=== PATIENT | female | born 1960 | race Caucasian/White ===

== ENCOUNTER 2021-02-28 07:48 | Day surgery (SDC) | payer BC ==
[~2021-02-28] VITALS: Ht 149.9 cm; Wt 82.5 kg
[2021-02-28] MEDS ORDERED: DESYREL 50MG50 MG PO (08:08)
[2021-02-28] MEDS ORDERED: KLONOPIN 0.5MG0.5 MG PO (08:08)
[2021-02-28] MEDS ORDERED: LEVOXYL0.125 MG PO (08:09)
[2021-02-28] MEDS ORDERED: PRILOTC PO (08:09)
[2021-02-28] MEDS ORDERED: VOLTAREN 75 DR75 MG PO (08:09)
[2021-02-28] MEDS ORDERED: ZOVIRAX400 MG PO (08:10)
[2021-02-28] MEDS ORDERED: PRISTIQ100 MG PO (08:10)
[2021-02-28] MEDS ORDERED: NEURONTIN100 MG/CAP PO (08:11)
[2021-02-28] MEDS ORDERED: NEURONTIN600 MG/TAB PO (08:11)
[2021-02-28] MEDS ORDERED: FOSAMAX 70MG TA70 MG PO (08:12)
[2021-02-28] MEDS ORDERED: LINZESS145CAP PO (08:12)
[2021-02-28] MEDS ORDERED: CALCIUM 600MG+D1 TAB PO (08:12)
[2021-02-28 08:19] VITALS: BP 108/73; PULSE 91; TEMP 98.2
[2021-02-28 09:50] VITALS: BP 104/56; PULSE 71; TEMP 97.6
[2021-02-28 10:00] VITALS: BP 110/69; PULSE 87
[2021-02-28 10:15] VITALS: BP 115/63; PULSE 79
[2021-02-28 10:30] VITALS: BP 100/63; PULSE 89
--- NOTE | 2021-02-28 14:00 | NUR ---
PT RETURNED FROM ENDO PROCEDURE ROOM PER CART INTO BAY#2. PT ALERT AND SLEEPY. DENIES PAIN, NAUSEA AND VOMITING AT THIS TIME. LUNGS CLEAR, HRR, BOWEL SOUNDS PRESENT. REQUESTS BLUEBERRY MUFFIN AND DIET PEPSI. FRIEND, KARLENE IS PRESENT IN ROOM WITH HER, THEY ARE TALKING. CALL LIGHT IN REACH. WILL CONT TO MONITOR.
--- NOTE | 2021-02-28 14:05 | NUR ---
PT TOLERATING FOOD AND FLUIDS WITHOUT DIFFICUTLY. DENIES PAIN. FRIEND, KARLENE IS AT HER SIDE.
--- NOTE | 2021-02-28 14:12 | NUR ---
PT TOLERATING FOOD AND FLUIDS WITHOUT DIFFICULTY. IV DC'D, PT TOLERATED WELL. DISMISSAL INSTRUCTIONS GIVEN, PT DENIES QUESTIONS. PT WAS TAKEN TO FRIEND'S CAR PER FOR DISCHARGE. FRIEND, KARLENE WAS DRIVING.
== END 2021-02-28 10:45 | disposition home or self-care (01) ==
LOC: SDCO 07:48
DX: Z12.11 Encounter for screening for malignant neoplasm of colon (principal); K62.89 Other specified diseases of anus and rectum; K57.30 Diverticulosis of large intestine without perforation or abscess without bleeding; E03.9 Hypothyroidism, unspecified; M19.90 Unspecified osteoarthritis, unspecified site; K21.9 Gastro-esophageal reflux disease without esophagitis; G47.33 Obstructive sleep apnea (adult) (pediatric); F41.9 Anxiety disorder, unspecified; Z99.89 Dependence on other enabling machines and devices; Z90.710 Acquired absence of both cervix and uterus; Z90.89 Acquired absence of other organs; Z79.890 Hormone replacement therapy; Z79.899 Other long term (current) drug therapy; Z98.0 Intestinal bypass and anastomosis status
CPT/HCPCS: J7120

== ENCOUNTER 2024-01-16 09:51 | Inpatient (IN) | payer BC ==
[2024-01-16] VITALS (7 sets, daily range): BP systolic 96–128; BP diastolic 60–80; PULSE 56–74; TEMP 97.9–99.5
[~2024-01-16] VITALS: Ht 147.3 cm; Wt 78.2 kg
[~2024-01-16 09:51] MED LIST: ASPIRIN 81M81 MG/TA2 PO; CALCIUM 600MG+D1 TAB PO; CELEXA40 MG PO; CEPHALEXIN500 M1 PO; CRESTOR 10MG10 MG PO; CRESTOR20 MG PO; DESYREL 50MG50 MG PO; DOXYCYCLINE 10100 MG PO; FOSAMAX 70MG TA70 MG PO; GLUCOPHAGE500 MG/TAB PO; KLONOPIN 0.5MG0.5 MG PO; LEVOXYL0.112 MG PO; LEVOXYL0.125 MG PO; LINZESS145CAP PO; LINZESS290CAP PO; MOUNJARO2.5 MG/0.5 SQ; NEURONTIN100 MG/CAP PO; NEURONTIN300 MG/CAP PO; NORCO 325 MG-51 TAB PO; PRILOTC PO; PRINIVIL2.5 MG PO; PRISTIQ100 MG PO; RYBELSUS3 MG PO; SYNTHROID0.075 MG/T PO; ULTRAM 50MG TAB50 MG PO; VOLTAREN 75 DR75 MG PO; ZOVIRAX400 MG PO
[2024-01-16] MEDS ORDERED: LYRICA 150MG C150 MG PO (12:42)
[2024-01-16] MEDS ORDERED: OZEMPIC2 MG/0.75 SQ (12:45)
[2024-01-16] MEDS ORDERED: Morphine 4 MG/ML VIAL IV PRN (13:00)
[2024-01-16] MEDS ORDERED: oxyCODONE 5 MG TAB PO PRN (13:00)
[2024-01-16] MEDS ORDERED: Naloxone 0.4 MG/ML VIAL IV PRN (13:00)
--- NOTE | 2024-01-16 13:27 | NUR ---
PATIENT BROUGHT TO FACILITY VIA EMS FROM [facility] AT APPROXIMATELY 1240. PATIENT DENIES ANY PAIN. KNEE IMMOBILIZER ON WITH SPLINT/CAST UNDER. PATIENT REPORTS FULL SENSATION, NO BURNING OR STINGING FROM RLE. PATIENT ABLE TO WIGGLE TOES. IV TO RIGHT HAND INT AND FLUSHES WELL. PATIENT REPORTS NO BM SINCE 01/11, REQUESTS BOWEL REGIMEN. SAVAGE TO DD WITH LIGHT BRIAN OUTPUT. SKIN ASSESSMENT COMPLETE. INTAKE COMPLETE. WAITING ON ORDERS. PATIENT AWARE OF PLAN. ALL NEEEDS MET. CALL LIGHT IN REACH. BED ALARM ON.
[2024-01-16 13:48] LABS: BASO % 0.7 % (0.0-2.0); EOS # 0.1 K/mm3 (0.0-0.7); EOS % 1.8 % (0.0-4.0); GRAN % 66.1 % (42.2-75.2); HEMOGLOBIN 12.2 g/dl (12.5-16.0); LYMPH # 1.1 K/mm3 (1.2-3.4); LYMPH % 24.2 % (20.0-51.0); MEAN CELL VOLUME 89 fl (80.0-100.0); MEAN CORPUSCULAR HEMOGLOBIN 30 pg (27-31); MEAN CORPUSCULAR HGB CONC 34 g/dl (33.0-37.0); MONO # 0.3 K/mm3 (0.1-0.6); MONO % 6.8 % (1.7-9.3); PLATELET COUNT 184 K/mm3 (130-400); RED BLOOD COUNT 4.08 M/mm3 (4.10-5.30); REDCELL DISTRIBUTION WIDTH-CV 13.8 % (11.5-14.5)
[2024-01-16 13:49] LABS: HEMATOCRIT 36.2 % (37.0-47.0); INR 1.3 (0.8-3.0)
[2024-01-16] MEDS ORDERED: Acetaminophen 500 MG TAB PO SCH (14:00)
[2024-01-16] MEDS ORDERED: Pregabalin 150 MG CAP PO SCH (14:00)
[2024-01-16] MEDS ORDERED: Bisacodyl 5 MG TAB PO PRN (14:00)
[2024-01-16 14:02] LABS: ALBUMIN 3.1 g/dL (3.4-4.8); ALKALINE PHOSPHATASE 77 U/L (40-150); ANION GAP 8 mmol/L (7-16); AST,SGOT 11 U/L (5-34); BILIRUBIN,TOTAL 0.7 mg/dL (0.2-1.2); BLOOD UREA NITROGEN 9 mg/dL (10-20); CALCIUM 8.7 mg/dL (8.4-10.2); CHLORIDE 106 mEq/L (98-107); CREATININE, serum 0.69 mg/dL (0.57-1.11); GLUCOSE 96 mg/dL (70-99); POTASSIUM 3.9 mEq/L (3.5-4.5); SODIUM 142 mEq/L (136-145); TOTAL PROTEIN 5.8 g/dl (6.2-8.1)
[2024-01-16 14:08] LABS: ALANINE AMINOTRANSFERASE < 6 U/L (0-55)
[2024-01-16] MEDS ORDERED: Ciprofloxacin 250 MG TAB PO SCH ×2 (14:15→21:00)
[2024-01-16] MEDS ORDERED: Sennosides/Docusate 8.6-50 MG TAB PO SCH (21:00)
[2024-01-16] MEDS ORDERED: clonazePAM 0.5 MG TAB PO SCH (21:00)
[2024-01-16] MEDS ORDERED: Citalopram 20 MG TAB PO SCH (21:00)
[2024-01-16] MEDS ORDERED: Celecoxib 200 MG CAP PO SCH (21:00)
[2024-01-16] MEDS ORDERED: Atorvastatin 10 MG TAB PO SCH (21:00)
[2024-01-16] MEDS ORDERED: D5 1/2 NS 1,000 ML IV SCH (21:00)
--- NOTE | 2024-01-16 23:25 | NUR ---
NURSING SHIFT ASSESSMENT COMPLETED. THE PATIENT WAS ALERT AND ORIENTED. PAIN RATING 4/10 RIGHT LOWER EXTREMITY. THE PATIENT IS ON BEDREST AND HAS AN IMMOBILIZER ON HER RIGHT LOWER EXTREMITY. CAPILLARY REFILL WNL AND TOES ARE WARM AND PINK. A PAIN PILL WAS PROVIDED. THE PATIENT UNDERSTANDS THAT SHE WILL BE NPO AT MIDNIGHT FOR HER PROCEDURE TOMORROW. THE PATIENT HAS A SAVAGE AND SAVAGE CARE WAS PROVIDED BY ANAID SLOAN. THE PATIENT HAS CLIF CRISTIE AND AN SCD ON THE LLE. THE PATIENT DENIED NEEDS AT THIS TIME OTHER THAN A PAIN PILL. CALL LIGHT AND PERSONAL BELONGINGS WITHIN REACH. BED IN THE LOW POSITION.
[2024-01-17] VITALS (17 sets, daily range): BP systolic 105–134; BP diastolic 56–77; PULSE 51–82; TEMP 97.6–98.4
--- NOTE | 2024-01-17 08:40 | NUR ---
Pt doing okay this morning. States no pain while at rest. Right leg is in splint/alfonso wrap from thigh to foot. Pt aware that she cannot have anything to eat or drink for surgery this afternoon. Did give her a sip of water for morning medications. She mentioned that she has not had a bowel movement in several days, but does not think she wants to take any laxatives since she has surgery this afternoon. Discussed different options with her. No other needs at this time, will continue to monitor
[2024-01-17] MEDS ORDERED: Polyethylene Glycol 3350 17 GM PDS PO SCH (09:00)
--- NOTE | 2024-01-17 09:51 | NUR ---
drop board worker met with patient to discuss discharge planning. She reports to live with her friend in [place]. She lists her contact as her daughter, Raisa [phone]. Pt completed DPOA-HC listing her daughter with RAISA and RAISA Richardson as witness. Pt signed and provided original and copies. Copy in chart. Pt is independent with ADLS and uses a CPAP, crutches, FWW, shower chair, and toilet riser for DME. Pt intends to return home upon discharge. Discharge Plan: home
--- NOTE | 2024-01-17 12:22 | NUR ---
D: Initial visit: Reel And Rewinder Operator stopped by room on rounds. A: Pt was resting and content. Pt has no needs right now. P: Reel And Rewinder Operator informed pt that if she needed anything from the beveling and edging machine operator area to let her nurse know. Reel And Rewinder Operator will follow up as needed.
[2024-01-17] MEDS ORDERED: LR 1,000 ML IV SCH (13:00)
[2024-01-17] MEDS ORDERED: Lidocaine PF 2% (20 MG/ML) 5 ML VIAL ONE (14:07)
[2024-01-17] MEDS ORDERED: Midazolam 2 MG/2 ML VIAL ONE (14:07)
[2024-01-17] MEDS ORDERED: NS 10 ML IV ONE (14:07)
[2024-01-17] MEDS ORDERED: Tranexamic Acid 1,000 MG/10 ML VIAL ONE (14:08)
--- NOTE | 2024-01-17 14:14 | NUR ---
Pt off the floor for surgery at this time
[2024-01-17] MEDS ORDERED: fentaNYL 50 MCG/ML 2 ML VIAL ONE (14:45)
[2024-01-17] MEDS ORDERED: droPERidol 2.5 MG/ML 2 ML VIAL IV PRN (15:30)
[2024-01-17] MEDS ORDERED: HYDROmorphone 1 MG/1 ML SYRINGE [PACU/SDC ONLY] IV PRN (15:30)
[2024-01-17] MEDS ORDERED: Ondansetron 4 MG/2 ML VIAL IV PRN (15:30)
[2024-01-17] MEDS ORDERED: hydrALAZINE 20 MG/ML 1 ML VIAL IV PRN (15:30)
[2024-01-17] MEDS ORDERED: fentaNYL 50 MCG/ML 1 ML SYRINGE/VIAL [PACU/SDC ONLY] IV PRN (15:30)
[2024-01-17] MEDS ORDERED: Promethazine 25 MG/ML 1 ML VIAL IM PRN (16:30)
[2024-01-17] MEDS ORDERED: Promethazine 25 MG TAB PO PRN (16:30)
[2024-01-17] MEDS ORDERED: Naloxone 0.4 MG/ML VIAL IV PRN (16:30)
--- NOTE | 2024-01-17 17:31 | NUR ---
PT arrived back from surgery recently. She is awake, no real complaints of pain at this time. Reports that she just feels loopy. Drsg to right leg is CDI with knee immobilizer in place. SCDs to left leg. Julien catheter in place. Pt reports that she is not hungry at this time. VSS
[2024-01-17] MEDS ORDERED: ceFAZolin 1 G in Water For Injection,Sterile 10 ML IV SCH (20:24)
[2024-01-17] MEDS ORDERED: Ketorolac 30 MG/ML VIAL IV ONE (23:30)
--- NOTE | 2024-01-17 23:37 | NUR ---
THE PATIENT HAD RECEIVED TYLENOL, LYRICA, 4 MG OF MORPHINE IVP, 10 MG OF OXYCODONE AND WAS STILL RATING HER RIGHT LOWER EXTREMITY PAIN 10/10. THE PATIENT REPORTED NO RELIEF AT ALL. SAMEERA RUIZ WAS NOTIFIED AND A NEW ORDER FOR KETOROLAC 30MG IVP WAS RECEIVED. WILL MONITOR.
[2024-01-18] VITALS (10 sets, daily range): BP systolic 91–134; BP diastolic 54–65; PULSE 70–81; TEMP 97.8–98.4
--- NOTE | 2024-01-18 02:15 | NUR ---
NURSING SHIFT ASSESSMENT COMPLETED. THE PATIENT WAS ALERT AND ORIENTED. THE PATIENT WAS REPORTING HER RLE PAIN 2/10 AT THIS TIME. THE PATIENT ATE HER DINNER AND IS NOT EXPERIENCEING N/V. PAIN MEDICATIONS AND SCHEDULES REVIEWED. ADEQUATE PAIN CONTROL PER THE PATIENT WOULD BE 4/10. ICE REMOVED PER THE PT REQUEST D/T A FEELING OF IT BEING TOO COLD. THE PATIENT STATED SHE WOULD BE WILLING TO HAVE IT PLACED BACK ON A LITTLE LATER. THE DRESSING IS C/D/I. THE IMMOBILIZER IN ON AND LOCKED IN THE 0 POSITION. THE RLE IS PINK, WARM WITH WNL CAPILLARY REFILL. THE PATIENT IS ABLE TO MOVE HER TOES. NO OTHER NEEDS AT THIS TIME. CALL LIGHT AND PERSONAL BELONGINGS WITHIN REACH. BED IN LOW POSITION.
[2024-01-18 06:43] LABS: HEMATOCRIT 37.7 % (37.0-47.0); HEMOGLOBIN 12.4 g/dl (12.5-16.0)
[2024-01-18 06:53] LABS: CALCIUM 8.7 mg/dL (8.4-10.2); CREATININE, serum 0.67 mg/dL (0.57-1.11); POTASSIUM 3.8 mEq/L (3.5-4.5)
[2024-01-18] MEDS ORDERED: Ketorolac 30 MG/ML VIAL IV ONE (08:30)
--- NOTE | 2024-01-18 11:45 | NUR ---
PATIENT A/O X4. RIGHT LEG IN IMMOBILIZER AND CARIDAD WRAP. CLEAN DRY, INTACT. MEDICATIONS GIVEN PO. SAVAGE IN PLACE. YELLOW CLEAR URINE IN BAG. D/C SAVAGE AFTER ASSESMENT, 9ML REMOVED FROM BALLOON, INTACT. COMPLAINT OF PAIN 02/03. Bradley BAUER, ADMINISTERED PRN PAIN MED. LAST BM THIS AM. CALL LIGHT WITHIN REACH.
[2024-01-18] MEDS ORDERED: oxyCODONE 5 MG TAB PO PRN (13:00)
--- NOTE | 2024-01-18 21:00 | NUR ---
PT A&O X4 LAYING IN BED. VSS ON ROOM AIR. DRSG, ACEWRAP, & BRACE TO RLE CDI. PT RATES PAIN TO RLE 12/04, GAVE SCHEDULED TYLENOL. INT TO LEFT AC PATENT. PT AMBULATED TO RESTROOM WITH X1 ASSIST. CLIF & SCD TO LLE. PT DENYING OTHER NEEDS. CALL LIGHT IN REACH
[2024-01-19 00:04] VITALS: BP 107/66; PULSE 71; TEMP 98.3
[2024-01-19 00:44] VITALS: BP_SYST 107
[2024-01-19 03:02] VITALS: BP 123/70; PULSE 76; TEMP 97.7
[2024-01-19 03:03] VITALS: BP_SYST 123
[2024-01-19 06:50] LABS: HEMOGLOBIN 11.8 g/dl (12.5-16.0)
[2024-01-19 06:55] LABS: HEMATOCRIT 34.8 % (37.0-47.0)
[2024-01-19 07:00] LABS: CALCIUM 8.8 mg/dL (8.4-10.2); CREATININE, serum 0.7 mg/dL (0.57-1.11); POTASSIUM 3.9 mEq/L (3.5-4.5)
[2024-01-19] MEDS ORDERED: Patient's Own Medication Item PO SCH (07:00)
[2024-01-19 08:00] VITALS: BP 100/67; PULSE 88; TEMP 98.6
[2024-01-19 09:00] VITALS: BP_SYST 100
[2024-01-19] MEDS ORDERED: ASPI325T6 PO (09:25)
[2024-01-19] MEDS ORDERED: TYLENOL 500MG500 MG PO (09:26)
[2024-01-19] MEDS ORDERED: ROXICODONE 55 MG/TAB PO (09:26)
[2024-01-19] MEDS ORDERED: CIPRO 250MG TA250 MG PO (09:29)
--- NOTE | 2024-01-19 10:47 | NUR ---
RAISA notified patient is stable for discharge to home with HH. Met with patient to discuss discharge. [email or web address] list of HH providers provided. Patient asked for referral to [facility]. Referral faxed. Patient has friend that will pick her up. Discharge plan: Home with HH
--- NOTE | 2024-01-19 12:47 | NUR ---
ORTHO ORDERS TO CHANGE BULKY DRESSING AND APPLY AQUACELL AND THIGH HIGH CLIF HOSE. PATIENT TOLERATED WELL. DISCHARGE INSTRUCTIONS PROVIDED. PATIENT EDUCATION GIVEN. IV DC'D. FOLLOW UP APPOINTMENTS DISCUSSED. MEDICATIONS REVIEWED. PATIENT DENIES ANY QUESTIONS OR CONCERNS. PATIENT ESCORTED OUT VIA WHEELCHAIR WITH BELONGINGS.
== END 2024-01-19 12:51 | disposition home health service (06) | DRG 493 ==
LOC: SURG 09:51
PROVIDERS: Orthopaedic Surgery; Physician Assistant; ADMIT Internal Medicine
PROC: 0QSG04Z Reposition Right Tibia with Internal Fixation Device, Open Approach (ICD-10-PCS; principal; 2024-01-17 15:30)
DX: S82.101A Unspecified fracture of upper end of right tibia, initial encounter for closed fracture (principal); M97.11XA Periprosthetic fracture around internal prosthetic right knee joint, initial encounter; N39.0 Urinary tract infection, site not specified; G47.33 Obstructive sleep apnea (adult) (pediatric); E03.9 Hypothyroidism, unspecified; E78.5 Hyperlipidemia, unspecified; A60.00 Herpesviral infection of urogenital system, unspecified; K21.9 Gastro-esophageal reflux disease without esophagitis; K58.1 Irritable bowel syndrome with constipation; M81.0 Age-related osteoporosis without current pathological fracture; F41.1 Generalized anxiety disorder; F32.9 Major depressive disorder, single episode, unspecified; W18.39XA Other fall on same level, initial encounter; M19.90 Unspecified osteoarthritis, unspecified site; E11.9 Type 2 diabetes mellitus without complications; D50.9 Iron deficiency anemia, unspecified; Z96.653 Presence of artificial knee joint, bilateral; Z99.89 Dependence on other enabling machines and devices; Z79.890 Hormone replacement therapy; Z79.899 Other long term (current) drug therapy; Y93.9 Activity, unspecified; Y92.9 Unspecified place or not applicable; Z79.82 Long term (current) use of aspirin; Z90.710 Acquired absence of both cervix and uterus; Z90.49 Acquired absence of other specified parts of digestive tract; Z88.8 Allergy status to other drugs, medicaments and biological substances; Z23 Encounter for immunization
CPT/HCPCS: A9284; C1713; C1776; J0665; J0690; J1885; J2250; J2270; J2704; J3010; J7120